=== PATIENT | female | born 1995 | race Caucasian/White ===

== ENCOUNTER 2018-03-09 01:32 | Emergency (ER) | payer OTHER ==
--- NOTE | 2018-03-09 01:54 | PDOC ---
History of Present Illness - General Stated Complaint: VOMITING/DIARRHEA Time Seen by Provider: 03/09/18 01:54 Past History - Travel Traveled outside of the country in the last 30 days: No Close contact w/someone who was outside of country & ill: No - Past Medical History Allergies/Adverse Reactions: Allergies Allergy/AdvReac Type Severity Reaction Status Date / Time No Known Allergies Allergy Verified 03/09/18 02:03 Home Medications: Ambulatory Orders Diphenhydramine HCl [Benadryl -] 25 mg PO Q6H #20 capsule 08/09/15 - Immunization History Immunization Up to Date: Yes - Suicide/Smoking/Psychosocial Hx Smoking Status: No Smoking History: Never smoked Have you smoked in the past 12 months: No Number of Cigarettes Smoked Daily: 0 Hx Alcohol Use: No Drug/Substance Use Hx: No Substance Use Type: None Review of Systems - Review of Systems Able to Perform ROS?: Yes Is the patient limited Maori proficient: No Constitutional: Yes: Malaise. No: Symptoms Reported, See HPI, Chills, Diaphoresis, Fever, Loss of Appetite, Night Sweats, Weakness, Weight Stable, Unintentional Wgt. Loss, Unexplained wgt Loss, Other HEENTM: No: Symptoms Reported, See HPI, Eye Pain, Blurred Vision, Tearing, Recent change in vision, Double Vision, Cataracts, Ear Pain, Ocular Prothesis, Ear Discharge, Nose Pain, Nose Congestion, Tinnitus, Nose Bleeding, Hearing Loss , Throat Pain, Throat Swelling, Mouth Pain, Dental Problems, Difficulty Swallowing, Mouth Swelling, Other Respiratory: No: Symptoms reported, See HPI, Cough, Orthopnea, Shortness of Breath, SOB with Exertion, SOB at Rest, Stridor, Wheezing, Productive cough, Hemoptysis, Other ABD/GI: Yes: Diarrhea, Nausea, Vomiting. No: Symptoms Reported, See HPI, Abdominal Distended, Abd. Pain w/ defecation, Blood Streaked Bowels, Constipated , Difficulty Swallowing, Poor Appetite, Poor Fluid Intake, Rectal Bleeding, Indigestion, Abdominal cramping, Tarry Stools, Other : No: Symptoms Reported, See HPI, Burning, Dysuria, Discharge, Frequency, Flank Pain, Hematuria, Incontinence, Pain, Urgency, Testicular Mass, Testicular Swelling, Lesions, Testicular Pain, Other Musculoskeletal: No: Symptoms Reported, See HPI, Back Pain, Gout, Joint Pain, Joint Swelling, Muscle Pain, Muscle Weakness, Neck Pain, Joint Stiffness, Other Integumentary: No: Symptoms Reported, See HPI, Bruising, Change in Color, Change in Hair/Nails, Dryness, Erythema, Flushing, Lesions, Lumps, Pallor, Pruritus, Rash, Sweating, Other Neurological: No: Symptoms reported, See HPI, Headache, Numbness, Paresthesia, Pre-Existing Deficit, Seizure, Tingling, Tremors, Weakness, Unsteady Gait, Ataxia, Dizziness, Other *Physical Exam - Physical Exam General Appearance: Yes: Nourished, Appropriately Dressed, Mild Distress HEENT: positive: EOMI, MICHELLE, Normal ENT Inspection, Normal Voice, Symmetrical, TMs Normal, Pharynx Normal Neck: positive: Trachea midline, Supple Respiratory/Chest: positive: Lungs Clear, Normal Breath Sounds Cardiovascular: positive: Regular Rhythm, Regular Rate, S1, S2 Gastrointestinal/Abdominal: positive: Normal Bowel Sounds, Flat, Soft Musculoskeletal: positive: Normal Inspection Extremity: positive: Normal Capillary Refill, Normal Inspection Integumentary: positive: Normal Color, Dry, Warm Neurologic: positive: cold rolling coordinator II-XII NML intact, Fully Oriented, Alert, Normal Mood/ Affect, Normal Response, Motor Strength 09/15 ED Treatment Course - LABORATORY CBC & Chemistry Diagram: 03/09/18 02:45 03/09/18 02:45 Medical Decision Making - Medical Decision Making 03/10/18 04:24 Labs normal' pt feels better with hydration in the ER. 03/10/18 04:25 UA normal; pt is not . She likely got food poisoned/gastroenteritis Pt was given potassium choride in the ER. 03/10/18 04:28 hydration, mag, zofran and pepcid. Pt felt great and was D/c'd *DC/Admit/Observation/Transfer Diagnosis at time of Disposition: Viral gastroenteritis - Discharge Dispostion Disposition: HOME Condition at time of disposition: Stable Decision to Admit order: No - Referrals Referrals: Anders Monahan MD [Primary Care Provider] - - Patient Instructions Printed Discharge Instructions: DI for Viral Gastroenteritis -- Adult - Post Discharge Activity Forms/Work/School Notes: Back to Work
[2018-03-09 02:08] VITALS: BP 132/91; PULSE 125; TEMP 99.5; BMI 35.5
[2018-03-09] MEDS ORDERED: SODIUM CHLORIDE 0.9% 500 ML INFUS.BAG IV ONE ×2 (02:11→03:14)
[2018-03-09] MEDS ORDERED: FAMOTIDINE 20 MG/50 ML IVPB 20 MG/50 ML MG IVPB ONE ×2 (02:13→02:48)
[2018-03-09] MEDS ORDERED: ONDANSETRON 4 MG/2 ML VIAL ONE (02:48)
[2018-03-09 02:52] LABS: BASO % 0.3 % (0-2.0); EOS % 0.9 % (0-4.5); HEMATOCRIT 40.5 % (32.4-45.2); HEMOGLOBIN 13.8 GM/dL (10.7-15.3); LYMPH % 3.9 % (8-40); MCH 29.6 pg (25.7-33.7); MEAN CELL VOLUME 87.2 fl (80-96); MEAN PLT VOLUME 8.8 fl (7.5-11.1); MONO % 4.9 % (3.8-10.2); PLATELET COUNT 189 K/MM3 (134-434); RBC 4.65 M/mm3 (3.60-5.2); RDW 14.2 % (11.6-15.6); WHITE BLOOD COUNT 14.5 K/mm3 (4.0-10.0)
[2018-03-09 03:16] LABS: ALBUMIN 3.9 g/dl (3.4-5.0); ALK PHOS 68 U/L (45-117); ANION GAP 8 MMOL/L (8-16); BILIRUBIN,TOTAL 1.3 mg/dL (0.2-1); BLOOD UREA NITROGEN 12 mg/dL (7-18); CALCIUM 8.8 mg/dL (8.5-10.1); CHLORIDE 108 mmol/L (98-107); CO2 24 mmol/L (21-32); CREATININE 0.7 mg/dL (0.55-1.3); GLUCOSE,RANDOM 115 mg/dL (74-106); POTASSIUM 3.3 mmol/L (3.5-5.1); SGOT/AST 23 U/L (15-37); SGPT/ALT 24 U/L (13-61); SODIUM 140 mmol/L (136-145); TOT PROT 7.9 g/dl (6.4-8.2)
[2018-03-09] MEDS ORDERED: MAGNESIUM SULF 50% (8.12 MEQ/2 ML-1 GM VIAL) IVPB ONE (03:17)
[2018-03-09] MEDS ORDERED: POTASSIUM CHLORIDE TABS 20 MEQ TABLET.ER (FP) PO ONE ×2 (03:18→03:35)
[2018-03-09] MEDS ORDERED: MAGNESIUM 1GM/D5W - 2 GM/200 ML IVPB IVPB ONE (03:31)
[2018-03-09 04:28] LABS: URINE APPEARANCE CLEAR; URINE BILIRUBIN NEGATIVE (<2.0 mg/dL); URINE COLOR AMBER; URINE GLUCOSE (UA) NEGATIVE (NEGATIVE); URINE KETONE NEGATIVE (NEGATIVE); URINE LEUK ESTERASE NEGATIVE (NEGATIVE); URINE NITRITE NEGATIVE (NEGATIVE); URINE PROTEIN 1+ (NEGATIVE); URINE UROBILINOGEN NEGATIVE mg/dL (0.2-1.0)
[2018-03-09 05:49] LABS: EPI CELLS FEW /HPF (FEW); URINE BACTERIA RARE /hpf (NONE SEEN); URINE MUCUS MANY
== END 2018-03-09 04:38 | disposition home or self-care (01) ==
LOC: JER 01:32
PROC: 3E033GC Introduction of Other Therapeutic Substance into Peripheral Vein, Percutaneous Approach (ICD-10-PCS; principal; 2018-03-09)
PROC: 3E033GC Introduction of Other Therapeutic Substance into Peripheral Vein, Percutaneous Approach (ICD-10-PCS; 2018-03-09)
DX: A08.4 Viral intestinal infection, unspecified (principal); B97.89 Other viral agents as the cause of diseases classified elsewhere; E87.6 Hypokalemia
CPT/HCPCS: 36415; 80053; 81003; 81015; 84702; 85025; 96365; 96375; 99281-25

== ENCOUNTER 2018-12-31 10:48 | Emergency (ER) | payer OTHER ==
[2018-12-31 10:57] VITALS: BP 154/89; PULSE 90; TEMP 98.4; BMI 38.5
--- NOTE | 2018-12-31 11:03 | PDOC ---
History of Present Illness - General Chief Complaint: Vaginal Bleeding Stated Complaint: 6WKS PAIN Time Seen by Provider: 12/31/18 11:01 History Source: Patient Exam Limitations: No Limitations - History of Present Illness Initial Comments: 12/31/18 11:03 HPI 23 YOF with no significant medical history presenting with vaginal spotting on wiping this morning, with mild lower abdominal cramping. she went to [facility] where she was told no def IUP seen By LMP at 11/18/18 she is 6 weeks currently; no prior history of DUB/ ovarian cyst/pelvic pain. Denies fever, chills, chest pain, SOB, palpitation, dizziness, weakness, N, V, D , abdominal pain, bladder and bowel problems, leg swelling, No sick contacts or travel. No new changes in medications. No suspicious food intake Allergies: None Past Medical History: as documented in EMR/HPI Social history: Lives with family. No tobacco, ETOH or drug use. 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: [facility] 12/31/18 11:23 Past History - Past Medical History Allergies/Adverse Reactions: Allergies Allergy/AdvReac Type Severity Reaction Status Date / Time No Known Allergies Allergy Verified 12/31/18 10:58 Home Medications: Ambulatory Orders Diphenhydramine HCl [Benadryl -] 25 mg PO Q6H #20 capsule 08/09/15 COPD: No - Reproductive History Therapeutic (s) & number: No - Immunization History Immunization Up to Date: Yes - Suicide/Smoking/Psychosocial Hx Smoking Status: No Smoking History: Never smoked Have you smoked in the past 12 months: No Number of Cigarettes Smoked Daily: 0 Hx Alcohol Use: No Drug/Substance Use Hx: No Substance Use Type: None Review of Systems - Review of Systems Able to Perform ROS?: Yes Comments:: 12/31/18 11:36 Review of systems Constitutional: no fevers or chills. No weakness HEENT: no headache or dizziness. No congestion. CVS: no cp or syncope. Resp: no sob. No cough. Gastrointestinal: no abdominal pain, nausea or vomiting. Genitourinary: no urinary sx, hematuria. no vaginal discharge. +vaginal spotting. MUSCULOSKELETAL: No joint pain and swelling. No neck or back pain. SKIN: no redness or skin changes, no discharge, no rash. No wounds. Hematologic: no easy bruising/bleeding. NEUROLOGIC: No headache, dizziness, LOC or altered mental status. No weakness, numbness or tingling. Psych: no anxiety or depression Allergic/Immunologic: no allergies All other systems reviewed and negative, or as documented in HPI. *Physical Exam - Vital Signs Last Vital Signs Temp Pulse Resp BP Pulse Ox 98.4 F 90 18 154/89 100 12/31/18 10:55 12/31/18 10:55 12/31/18 10:55 12/31/18 10:55 12/31/18 10:55 - Physical Exam Comments: 12/31/18 11:36 Physical exam General: Well appearing, awake and alert, NAD. HEENT: NCAT, PERRL, EOMI, clear conjunctiva, anicteric, moist mucus membranes, clear oropharynx, no oral lesions.. Neck: neck supple, FROM Resp: CTAB, normal and even respirations, no respiratory distress CVS: RRR, no murmurs, 2+ peripheral pulses throughout, no peripheral edema Abdomen: soft, NTND, no rebound or guarding. No CVAT. : normal external genitalia, no lesions, clear vaginal vault, no CMT, no adnexal tenderness. Smooth and pink cervix, closed. Back: nontender, normal inspection and ROM MSK: no edema, PRADO x4, ROM intact. No clubbing or cyanosis. normal bulk and tone. Extremities: no calf tenderness Neuro: alert Psych: Calm and cooperative Skin: warm and well perfused, cap refill <2 sec, normal color ED Treatment Course - LABORATORY CBC & Chemistry Diagram: 12/31/18 12:17 12/31/18 12:17 Medical Decision Making - Medical Decision Making 12/31/18 11:03 DDX Considered: Adenomyosis, Cervicitis, Dysfunctional uterine bleeding, Ectopic , Endometrial cancer, Hydatidiform mole, Implantation bleeding , infection/UTI, IUD/contraceptives, Miscarriage, Polycystic ovarian syndrome, Postcoital bleeding, hemorrhage, Retained products of conception, Uterine fibroids, Uterine polyp, Anemia, In evaluating this patient's complaint , multiple diagnoses were considered, including those listed above. Based on history, physical, clinical context, and any tests done today it is my judgment that the diagnosis/diagnoses considered do not apply to this patient and that the remaining diagnoses about either do not apply to this patient, or do not require additional emergent evaluation and treatment Patient presents with first trimester vaginal bleeding. Possible etiologies of the vaginal of bleeding were considered, including but not limited to: ectopic , spontaneous miscarriage, threatened , demise, subchorionic hematoma, retained POC, gestational trophoblastic disease, implantaton bleeding, molar , anemia, UTI in , fibroids, vaginitis, anemia, electrolyte/metabolic abnormalities. Clinically the patient looks well, no indications for transfusion and no signs or symptoms of peritonitis. VS reviewed, normotensive, mentating. no systemic findings, no tachycardia. Because the patient was having vaginal bleeding their RH status was determined to be NEGATIVE, so needs Rhogam VS wnl, abdomen with lower abdominal pain, VB controlled with pads. VS wnl, normotensive, no tachy or hypoxia/respiratory distress. abdomen benign on reeval and no peritoneal findings, no VB here, controlled Labs and lytes, H/H wnl. UA neg for infection Beta hcg 23,000 TVUS IUP at 6 weeks gestation by CRL, HR low but could be limited due to size/ gestational age. ovaries appear normal, normal flow seen. Additional labs demonstrated: After careful consideration I believe the patient is safe to be discharged home with outpatient [employer]ST[employer]ER followup. I had an extensive discussion with the patient about the possible etiologies of the vaginal bleeding and answered all their questions. I also provided education on care. The patient is agreeable to outpatient Senior Net Engineer for serial BETA-HCG /Pelvic sono (1 week appropriate, with IUP seen, early). I encouraged them to call if they have any questions and return to the ED for any worsening of symptoms, including but not limited to persistent and heavy vaginal bleeding, persistent pelvic pain not relieved by your prescribed medications, dizziness, shortness of breath, new and persistent fevers, other foul smelling discolored vaginal discharge, or for any other concerns. OB follow up given, return precautions VB, syncope, cp, dizziness, shortness of breath, new and persistent fevers, other foul smelling discolored vaginal discharge, or for any other concerns. 12/31/18 16:27 - pt awaiting rhogam shot and repeat TxS, had been spoken to several times with mother and sig other at bedside, tolerated PO intake. however on getting txs and meds by RN, unable to be found. eloped. *DC/Admit/Observation/Transfer Diagnosis at time of Disposition: Vaginal bleeding during - Discharge Dispostion Disposition: ELOPED Condition at time of disposition: Good Decision to Admit order: No - Referrals Referrals: Lois Albarran MD [Staff Physician] - Trevon Gonsales MD [Staff Physician] - Hailey Han MD [Staff Physician] - Shanika Umaña MD [Staff Physician] - - Patient Instructions Printed Discharge Instructions: DI for Vaginal Bleeding During Additional Instructions: You were evaluated here in the department for vaginal bleeding in the setting of You were given Rhogam because you are RH negative, this is to prevent an immune response to your future pregnancies. Ultrasound and labs revealed a Beta HCG of 23,000 your ultrasound showed an intrauterine at 6 weeks. this could still be early this needs to be trended with your ultrasound that will likely need repeated in 1 week. You should return to the hospital if you continue to have persistent and heavy vaginal bleeding, persistent pelvic pain not relieved by your prescribed medications, dizziness, shortness of breath, new and persistent fevers, other foul smelling discolored vaginal discharge, or for any other concerns. if you experience bleeding like your period you could be having a miscarriage. You should follow up with an [employer]AL WORK [employer]CT INSTALLER in 2-3 days for clinical reevaluation of your beta hcg.. referrals given be sure to take your vitamins daily pelvic rest and hydration advised, minimize stressors. - Post Discharge Activity Forms/Work/School Notes: Back to Work
[2018-12-31 12:41] LABS: BASO % 0.7 % (0-2.0); EOS % 0.5 % (0-4.5); HEMOGLOBIN 11.9 GM/dL (10.7-15.3); LYMPH % 28.1 % (8-40); MCH 30.1 pg (25.7-33.7); MEAN CELL VOLUME 86.2 fl (80-96); MEAN PLT VOLUME 8.7 fl (7.5-11.1); MONO % 5.3 % (3.8-10.2); NEUT % 65.4 % (42.8-82.8); PLATELET COUNT 184 K/MM3 (134-434); RBC 3.95 M/mm3 (3.60-5.2); RDW 14.4 % (11.6-15.6); WHITE BLOOD COUNT 6.9 K/mm3 (4.0-10.0)
[2018-12-31 12:46] LABS: PH,URINE 5.5 (5.0-8.0); URINE APPEARANCE CLOUDY; URINE BILIRUBIN NEGATIVE (NEGATIVE); URINE COLOR YELLOW; URINE GLUCOSE (UA) NEGATIVE (NEGATIVE); URINE KETONE NEGATIVE (NEGATIVE); URINE LEUK ESTERASE NEGATIVE (NEGATIVE); URINE NITRITE NEGATIVE (NEGATIVE); URINE PROTEIN NEGATIVE (NEGATIVE); URINE UROBILINOGEN 0.2 mg/dL (0.2-1.0)
[2018-12-31 13:06] LABS: ALBUMIN 3.8 g/dl (3.4-5.0); BILIRUBIN,TOTAL 0.6 mg/dL (0.2-1); BLOOD UREA NITROGEN 7.9 mg/dL (7-18); CALCIUM 8.9 mg/dL (8.5-10.1); CREATININE 0.4 mg/dL (0.55-1.3); POTASSIUM 4.1 mmol/L (3.5-5.1)
[2018-12-31] MEDS ORDERED: RHO(D) IMMUNE GLOBULIN 1,500 UNIT DISP.SYRIN IM ONE (15:03)
== END 2018-12-31 15:30 | disposition left against medical advice (07) ==
LOC: JER 10:48
DX: O26.891 Other specified pregnancy related conditions, first trimester (principal); Z3A.01 Less than 8 weeks gestation of pregnancy; N93.9 Abnormal uterine and vaginal bleeding, unspecified
CPT/HCPCS: 36415; 76801-TC; 80053; 81003; 84702; 85025; 86850; 86900; 86901; 87086; 99281-25

== ENCOUNTER 2019-01-31 19:01 | Emergency (ER) | payer OTHER ==
[2019-01-31 19:11] VITALS: BP 155/101; PULSE 85; TEMP 98.9; BMI 39.5
--- NOTE | 2019-01-31 19:12 | PDOC ---
Rapid Medical Evaluation Medical Evaluation: Allergies Allergy/AdvReac Type Severity Reaction Status Date / Time No Known Allergies Allergy Verified 12/31/18 10:58 I have performed a brief in-person evaluation of this patient. The patient presents with a chief complaint of: s/p D&C done at [facility] for miscarriage; is c/o pelvic pain since the D&C; also with throat pain as she was intubated during D&C; is taking motrin without much relief of sxs; denies vomiting, urinary complaints; states surgeon who performed the procedure requested patient to come to [facility] for eval but family wants evaluation here as already here and does not want to drive back there (had initially tried calling [facility] but got no answer) Pertinent physical exam findings: In NAD, pelvic deferred I have ordered the following: labs The patient will proceed to the ED for further evaluation. 01/31/19 19:08 Discharge Disposition - Referrals Referrals: Anders Monahan MD [Primary Care Provider] - - Patient Instructions - Post Discharge Activity
== END 2019-01-31 19:55 | disposition left against medical advice (07) ==
LOC: JER 19:01
DX: Z53.21 Procedure and treatment not carried out due to patient leaving prior to being seen by health care provider (principal)
CPT/HCPCS: 99281-25